=== PATIENT | female | born 1935 | race Caucasian/White ===

== ENCOUNTER 2018-06-01 20:02 | Emergency (ER) | payer MEDICARE ==
[~2018-06-01] VITALS: Ht 172.7 cm; Wt 98.0 kg
[~2018-06-01 20:02] MED LIST: ADVAIR 250-501 EACH INH; AFRIN30 ML INH; ALEVE220 M1 PO; ANTI-DIARRHEAL2 M1 PO; ATENOLOL25 MG PO; ATENOLOL50 MG PO; AZELASTINE137 MCG/0.; CARAFATE1 GM PO; CENTRUM SILVER1 EAC1; D3 + K2 DOTS 11 EACH PO; DAILY VITAMIN1 EAC3 PO; DIOVAN160 MG PO; ECOTRIN325 MG PO; HYDROCHLOROTHIA25 MG PO; LEXAPRO10 MG PO; LIPITOR40 MG PO; LOSARTAN POTASS25 MG PO; MELOXICAM7.5 MG PO; METOCLOPRAMIDE10 MG PO; MINOCYCLINE HC100 MG PO; MONTELUKAST SOD10 MG PO; NEURONTIN600 MG PO; NEXIUM; NEXIUM40 MG PO; PANTOPRAZOLE SO40 MG PO; PEPCID AC10 MG PO; SIMVASTATIN40 MG PO; TORSEMIDE20 MG PO; TYLENOL EXTRA500 MG PO; ULTRAM50 MG PO; VERAPAMIL ER120 MG PO; VICODIN 5-5001 EACH PO; WELCHOL625 MG PO; ZYRTEC10 MG PO
--- OUTSIDE RECORDS SUMMARY | 2018-06-01 20:05 | XMS REPORT ---
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 Allergies, Adverse Reactions, Alerts Allergy Name Allergy Type Status Severity Reaction(s) Onset Date Inactive Date Treating Clinician Comments Glenvil And Derivatives DA Active MO 2018-01-16 00:00:00 morphine DA Active SV 2015-12-28 00:00:00 Medications This patient has no known medications.
--- NOTE | 2018-06-01 21:49 | Diagnostic Imaging Report ---
Foot complete CPT code: 84462 Indication: Fall ^S/P FALL ^[id number] ^[id number] ^Y Technique: A.P., oblique and lateral views of the left foot obtained. Comparison: None Findings: The area of pain is not indicated or marked. The bones are diffusely demineralized. Calcaneus is intact with small posterior and plantar spurs. The midfoot is intact. There is an acute, nondisplaced fracture through the proximal diaphysis of the first metatarsal. No extension to the articular surface. There is a remote fracture of the third metatarsal. No dislocation of the digits. There is diffuse soft tissue swelling of the forefoot. Vascular calcifications are present in the arterial structures. No radiopaque foreign bodies in the soft tissues. IMPRESSION: Acute, nondisplaced fracture of the proximal first metatarsal. Healed fracture of the third metatarsal. No dislocation. Signed by: Dr. Kathryn Mane MD on 06/01/2018 9:45 PM
--- NOTE | 2018-06-01 21:51 | Diagnostic Imaging Report ---
Ankle complete CPT CODE: 00927 HISTORY: Fall TECHNIQUE: Three views left ankle obtained COMPARISON: None. FINDINGS: The bones are diffusely demineralized. The distal tibia and fibula appear intact. Tiny round cortical excrescence from the inferior tip of the lateral malleolus is suggestive of remote injury. No donor site. Ankle mortise remains symmetric. There is medial and lateral malleolar soft tissue swelling but no tibiotalar ankle effusion. The talus is normal in morphology. The talar dome is smooth. The calcaneus appears intact with small plantar posterior spurs. The visualized portions of the midfoot and forefoot are intact. Diffuse calcifications of the arterial structures. No radiopaque foreign bodies in the soft tissues. IMPRESSION: No evidence of acute fracture or dislocation involving the ankle. Signed by: Dr. Kathryn Mane MD on 06/01/2018 9:48 PM
--- NOTE | 2018-06-01 22:15 | NUR ---
POST OP SHOE PLACED TO PTS L FOOT
[2018-06-01 22:40] VITALS: BP 135/72
== END 2018-06-01 22:41 | disposition home or self-care (01) ==
LOC: ER 20:02
DX: S92.315A Nondisplaced fracture of first metatarsal bone, left foot, initial encounter for closed fracture (principal); M79.662 Pain in left lower leg; W17.89XA Other fall from one level to another, initial encounter; Y92.008 Other place in unspecified non-institutional (private) residence as the place of occurrence of the external cause; E78.5 Hyperlipidemia, unspecified; K21.9 Gastro-esophageal reflux disease without esophagitis; Z85.53 Personal history of malignant neoplasm of renal pelvis
CPT/HCPCS: 99283